=== PATIENT | female | born 1950 | race American Indian/Alaskan Native ===

== ENCOUNTER 2018-06-05 18:22 | Emergency (ER) | payer SELFPAY ==
[2018-06-05 19:01] VITALS: TEMP 99.1
--- NOTE | 2018-06-05 19:20 | C.PDOC ---
History Of Present Illness Patient presents to the ER with a complaint of a dull cramping diffuse abdominal pain for the past few weeks. Patient notes she has been in [place]. Denies fever, chills, nausea, or vomiting. Patient also complains of bilateral knee pain, denies recent trauma or injury. Time Seen by Provider: 06/05/18 19:18 Chief Complaint (Nursing): Abdominal Pain History Per: Patient History/Exam Limitations: no limitations Onset/Duration Of Symptoms: Days Current Symptoms Are (Timing): Still Present Severity: Mild Pain Scale Rating Of: 3 Location Of Pain/Discomfort: Diffuse Radiation Of Pain To:: None Quality Of Discomfort: Aching, Cramping Associated Symptoms: denies: Fever, Chills, Nausea, Vomiting Exacerbating Factors: None Alleviating Factors: None Recent travel outside of the [place]: Yes Abnormal Vaginal Bleeding: No Past Medical History Reviewed: Historical Data, Nursing Documentation, Vital Signs Vital Signs: Last Vital Signs Temp 99.1 F 06/05/18 18:30 Pulse 88 06/05/18 18:30 Resp 18 06/05/18 18:30 BP 145/96 H 06/05/18 18:30 Pulse Ox 97 06/05/18 19:46 Family History: States: No Known Family Hx - Social History Hx Alcohol Use: No Hx Substance Use: No Review Of Systems Constitutional: Negative for: Fever, Chills Cardiovascular: Negative for: Chest Pain, Palpitations Respiratory: Negative for: Cough, Shortness of Breath Gastrointestinal: Positive for: Abdominal Pain. Negative for: Nausea, Vomiting Musculoskeletal: Positive for: Other (Bilateral knee pain) Physical Exam - Physical Exam Appears: Non-toxic Skin: Warm, Dry Head: Normacephalic Oral Mucosa: Moist Chest: Symmetrical, No Tenderness Cardiovascular: Rhythm Regular Respiratory: No Rales, No Rhonchi, No Wheezing Gastrointestinal/Abdominal: Soft, Tenderness (Mild diffuse), No Guarding, No Rebound Extremity: No Calf Tenderness, Capillary Refill (<2 seconds), Other (Full ROM of bilateral knees) Pulses: Left Dorsalis Pedis: Normal, Right Dorsalis Pedis: Normal Neurological/Psych: Oriented x3 Gait: Steady ED Course And Treatment - Laboratory Results Result Diagrams: 06/05/18 19:52 06/05/18 19:52 O2 Sat by Pulse Oximetry: 97 (Room air) Pulse Ox Interpretation: Normal Progress Note: EKG, blood work, and urinalysis ordered. Pepcid administered. Reevaluation Time: 23:00 Reassessment Condition: Improved Disposition Counseled Patient/Family Regarding: Studies Performed, Diagnosis, Need For Followup, Rx Given - Disposition Referrals: [facility] [Outside] [facility] [Outside] Disposition: HOME/ ROUTINE Disposition Time: 19:20 Condition: FAIR Prescriptions: Polyethylene Glycol 3350 [Miralax] 17 gm PO DAILY #270 ml Instructions: Acute Abdomen (Belly Pain), Adult (DC), Constipation, Adult (DC) Forms: [employer] (Latvian) - Clinical Impression Clinical Impression: Abdominal pain, Constipation - Scribe Statement The provider has reviewed the documentation as recorded by the Scribmannie Sampson All medical record entries made by the Scribe were at my direction and personally dictated by me. I have reviewed the chart and agree that the record accurately reflects my personal performance of the history, physical exam, medical decision making, and the department course for this patient. I have also personally directed, reviewed, and agree with the discharge instructions and disposition.
[2018-06-05 19:57] LABS: BASO % 0.5 % (0.0-2.0); EOS % 0.6 % (0.0-4.0); HEMOGLOBIN 13.4 g/dL (11.0-16.0); LYMPH # 2.9 K/uL (1.0-4.3); LYMPH % 35.4 % (20.0-40.0); MEAN CELL VOLUME 85.6 fL (81.0-99.0); MEAN CORPUSCULAR HEMOGLOBIN 28.1 pg (27.0-31.0); MEAN CORPUSCULAR HGB CONC 32.8 g/dL (33.0-37.0); MEAN PLATELET VOLUME 7.6 fL (7.2-11.7); MONO # 0.6 K/uL (0.0-0.8); MONO % 7.5 % (0.0-10.0); NEUT # 4.6 K/uL (1.8-7.0); RBC 4.77 Mil/uL (3.80-5.20); RED CELL DISTRIBUTION WIDTH 14.2 % (11.5-14.5); WHITE BLOOD COUNT 8.2 K/uL (4.8-10.8)
[2018-06-05 19:58] LABS: SQUAMOUS EPITHIAL 1 /hpf (0-5); URINE BILIRUBIN NEGATIVE (NEGATIVE); URINE CLARITY Clear (Clear); URINE COLOR Straw (YELLOW); URINE GLUCOSE (UA) NORMAL (Normal); URINE LEUKOCYTE ESTERASE NEG Leu/uL (Negative); URINE PROTEIN NEGATIVE (NEGATIVE); URINE UROBILINOGEN NORMAL mg/dL (0.2-1.0)
[2018-06-05 20:03] LABS: URINE BLOOD TRACE (NEGATIVE)
[2018-06-05 20:13] LABS: PROTHROMBIN TIME 10.9 SECONDS (9.7-12.2)
[2018-06-05 20:20] LABS: ALB/GLOB RATIO 1.3 (1.0-2.1); ALBUMIN 4.8 g/dL (3.5-5.0); ALT/SGPT 30 U/L (9-52); AST/SGOT 28 U/L (14-36); BLOOD UREA NITROGEN 22 mg/dL (7-17); CALCIUM 9.8 mg/dl (8.6-10.4); GFR NON-AFRICAN AMERICAN 55; LIPASE 181 U/L (23-300)
[2018-06-05] MEDS ORDERED: Iodixanol 320 MG/ML 100 ML BOTTLE IV ONE (21:01)
[2018-06-05 23:14] VITALS: BP 100/76; PULSE 73; RESP 16; O2SAT 100
--- NOTE | 2018-06-06 08:37 | CT ---
Date of service: 06/05/2018 PROCEDURE: CT Abdomen and Pelvis with contrast HISTORY: mid epigastric pain COMPARISON: None. TECHNIQUE: Contrast dose: 100 mL Visipaque 320 Radiation dose: Total exam DLP = 336.4 mGy-cm. This CT exam was performed using one or more of the following dose reduction techniques: Automated exposure control, adjustment of the mA and/or kV according to patient size, and/or use of iterative reconstruction technique. FINDINGS: LOWER THORAX: Unremarkable. LIVER: Unremarkable. No gross lesion or ductal dilatation. GALLBLADDER AND BILE DUCTS: Unremarkable. PANCREAS: Unremarkable. No gross lesion or ductal dilatation. SPLEEN: Unremarkable. ADRENALS: Unremarkable. No mass. KIDNEYS AND URETERS: Unremarkable. No hydronephrosis. No solid mass. VASCULATURE: Calcific atherosclerosis. No aortic aneurysm. BOWEL: Small hiatal hernia. Prominent amount of retained colonic stool. No obstruction. No gross mural thickening. APPENDIX: Normal appendix. PERITONEUM: Unremarkable. No free fluid. No free air. LYMPH NODES: Unremarkable. No enlarged lymph nodes. BLADDER: Unremarkable. REPRODUCTIVE: Unremarkable. BONES: No acute fracture. OTHER FINDINGS: None. IMPRESSION: No acute abdominal pelvic pathology.
== END 2018-06-05 23:15 | disposition home or self-care (01) ==
LOC: C.ER 18:22
DX: K59.00 Constipation, unspecified (principal); R10.9 Unspecified abdominal pain
CPT/HCPCS: 74177; 80053; 81001; 83690; 84443; 85025; 85610; 85730; 96374; 96375; 99284; J1885; Q9967